=== PATIENT | female | born 1985 | race Caucasian/White ===

== ENCOUNTER → 2017-08-23 | Outpatient (CLI) | payer OTHER ==
[~2017-08-23] MED LIST: CEPH500C3 PO; LORT5TAB PO; SILV1CRE59 TOP; Z.0.NO CURRENT MEDS
== END ==
LOC: HPND 07:43
PROVIDERS: ATTEND Obstetrics & Gynecology
DX: O35.8XX0 Maternal care for other (suspected) fetal abnormality and damage, not applicable or unspecified (principal); O09.899 Supervision of other high risk pregnancies, unspecified trimester
CPT/HCPCS: 76811; 76825; 76827; 93325